=== PATIENT | male | born 1990 | race Hispanic/Latino ===

== ENCOUNTER 2019-03-09 10:26 | Emergency (ER) | payer SELFPAY ==
--- NOTE | 2019-03-09 11:48 | RAD ---
LEFT FOREARM 2 VIEWS: Date: 03/09/19 HISTORY: Injury. Laceration to forearm. Left forearm pain. FINDINGS/IMPRESSION: The left radius and ulna are intact. No radiopaque foreign body is seen. POS: [facility]
[2019-03-09] MEDS ORDERED: Lidocaine 1% w/Epinephrine 1:100K 20 ML VIAL ONE (12:40)
[2019-03-09] MEDS ORDERED: Adacel (T-DAP) 0.5 ML SYRINGE ONE (12:40)
[2019-03-09] MEDS ORDERED: Bacitracin Zinc 1 Packet ONE (13:07)
== END 2019-03-09 13:08 | disposition home or self-care (01) ==
LOC: ERS 10:26
DX: S51.812A Laceration without foreign body of left forearm, initial encounter (principal); W26.8XXA Contact with other sharp object(s), not elsewhere classified, initial encounter; Y92.69 Other specified industrial and construction area as the place of occurrence of the external cause
CPT/HCPCS: 12001; 90471; 90715; J2001